=== PATIENT | male | born 2000 | race Caucasian/White ===

== ENCOUNTER 2020-05-05 15:26 | Emergency (ER) | payer SELFPAY ==
[~2020-05-05] VITALS: Ht 182.9 cm; Wt 90.7 kg
[2020-05-05] MEDS ORDERED: fentaNYL CITRATE 100 MCG/2 ML VL IV ONE (16:30)
[2020-05-05] MEDS ORDERED: MIDAZOLAM HCL 5 MG/ML-1ML VIAL IV ONE (16:30)
[2020-05-05 17:30] VITALS: BP 119/72
== END 2020-05-05 18:30 | disposition home or self-care (01) ==
LOC: ER 15:26
DX: S43.085A Other dislocation of left shoulder joint, initial encounter (principal); X58.XXXA Exposure to other specified factors, initial encounter; Y93.89 Activity, other specified; Y92.89 Other specified places as the place of occurrence of the external cause; Y99.8 Other external cause status
CPT/HCPCS: 23650; 73020; 73030; 96374; 99285; J2250; J3010; J7030